=== PATIENT | male | born 1940 | race Caucasian/White ===

== ENCOUNTER 2017-01-18 07:33 | Inpatient (IN) | payer MEDICARE, BC ==
[~2017-01-18] VITALS: Ht 182.9 cm; Wt 102.0 kg
[2017-01-18] VITALS (14 sets, daily range): BP systolic 112–136; BP diastolic 56–74; PULSE 38–100; RESP 17–20; TEMP 97.1–98.2; O2SAT 96–100
[~2017-01-18 07:33] MED LIST: ASPI81TA82 PO; FURO1TAB93 PO; ISOS30TA3 PO; LISI-363 PO; METF-324 PO; METO50TA PO; NITR.4 SL; PERC5TAB12 PO; SIMV80TA PO; SINE25100 PO
--- NOTE | 2017-01-18 07:40 | PD ---
HPI Chief Complaint: syncope Time Seen by Provider: 07:40 Travel History International Travel<30 days: No Contact w/Intl Traveler<30days: No Traveled to known affect area: No History of Present Illness HPI 76-year-old male came to the emergency room brought by EMS for a syncopal episode while he was eating breakfast with his son-in-law. This was witnessed by the son-in-law who immediately called 911. When the first responders arrived they noticed him on the floor diaphoretic pale and it didn't seem like he had a pulse. They were about to start CPR but then pulse return before CPR was started. Patient slowly started to wake up. Initial blood pressure was 80 over palp and blood sugar was 189. His heart rate was 40 and sinus bradycardia. When he arrived in the emergency room his heart rate was 38 and blood pressure was 111 systolic. Patient was awake, alert and answering questions appropriately. He denies of any chest pain. His son-in-law came in within 5 minutes and confirmed the story again. Patient is on metoprolol among other medications and he took his medications at 4:30 in the morning when he woke up. He says that he saw his insulation board head saw operator 2 days ago and was told everything was okay. His insulation board head saw operator is Dr. De La Cruz. [facility] Past Medical History Narrative Medical List of his past medical, surgical, social and family history was reviewed from the nursing note. Arthritis: No Asthma: No Anxiety: No Depression: No Heart Rhythm Problems: No Cancer: No Cardiac Catheterization: Yes Cardiovascular Problems: Yes ([place]) High Cholesterol: Yes Chemotherapy: No Chest Pain: Yes Congestive Heart Failure: Yes COPD: No Cerebrovascular Accident: No Coronary Artery Disease: Yes Diabetes: Yes Diminished Hearing: Yes ([place]) GERD: No Genitourinary: No Hiatal Hernia: No Hypertension: Yes Kidney Stones: No Musculoskeletal: No Parkinson's Disease: Yes Psychiatric: No Reproductive: No Respiratory: No Migraines: No Myocardial Infarction: Yes Radiation Therapy: No Renal Failure: No Sickle Cell Disease: No Sleep Apnea: No Thyroid Disease: No Ulcer: No Past Surgical History Abdominal Surgery: No Arteriovenous Shunt: No Cardiac Surgery: No Coronary Artery Bypass Graft: Yes Ear Surgery: No Endocrine Surgery: No Eye Surgery: No Genitourinary Surgery: No Gynecologic Surgery: No Joint Replacement: No Oral Surgery: No Pacemaker: No Thoracic Surgery: No Tonsillectomy: Yes Other Surgery: Yes (CABG X 3) Social History Alcohol Use: Yes (4-6 BEERS A WEEK) Tobacco Use: No Substance Use: No Allergies-Medications (Allergen,Severity, Reaction): Coded Allergies: No Known Allergies (Unverified , 06/22/15) Comments No known drug allergies. Reported Meds & Prescriptions Reported Meds & Active Scripts Active Reported Nitroglycerin SL (Nitroglycerin) 0.4 Mg Subl 0.4 Mg SL DIRECTED PRN ONE TABLET UNDER THE TONGUE NEEDED FOR CHEST PAIN, MAY REPEAT EVERY FIVE MINUTES FOR A TOTAL OF 3 DOSES OR CALL 911 IF NO RELIEF Simvastatin 80 Mg Tab 80 Mg PO DAILY Metoprolol Tartrate 50 Mg Tab 50 Mg PO DAILY Lisinopril 40 Mg Tab 40 Mg PO DAILY Isosorbide Mononitrate ER (Isosorbide Mononitrate) 30 Mg Edu 30 Mg PO DAILY Furosemide 40 Mg Tab 40 Mg PO DAILY Carbidopa-Levodopa 25-100 Mg Tab 1 Tab PO Q8HR Bupropion HCl ER 12 HR (Bupropion HCl) 100 Mg Tab 150 Mg PO Q12HR Aspirin 81 Mg Chew 81 Mg CHEW DAILY Narrative Medication List of his home medications reviewed from the nursing note. Review of Systems Except as stated in HPI: all other systems reviewed are Neg Physical Exam Narrative GENERAL: Awake, alert, mild distress SKIN: Focused skin assessment warm/dry. Pale HEAD: Atraumatic. Normocephalic. EYES: Pupils equal and round. No scleral icterus. No injection or drainage. ENT: No nasal bleeding or discharge. Mucous membranes pink and moist. NECK: Trachea midline. No JVD. CARDIOVASCULAR: Regular rate and rhythm. Bradycardia. No murmur appreciated. RESPIRATORY: No accessory muscle use. Clear to auscultation. Breath sounds equal bilaterally. GASTROINTESTINAL: Abdomen soft, non-tender, nondistended. Hepatic and splenic margins not palpable. MUSCULOSKELETAL: No obvious deformities. No clubbing. No cyanosis. No edema. NEUROLOGICAL: Awake and alert. No obvious cranial nerve deficits. Motor grossly within normal limits. Normal speech. PSYCHIATRIC: Appropriate mood and affect; insight and judgment normal. Data Data Last Documented VS Vital Signs Date Time Temp Pulse Resp B/P Pulse Ox O2 Delivery O2 Flow Rate FiO2 01/18/17 09:55 58 20 125/56 01/18/17 08:00 97 01/18/17 08:00 Nasal Cannula 2 01/18/17 07:37 98.2 Orders Electrocardiogram (01/18/17 07:49) Basic Metabolic Panel (Bmp) (01/18/17 07:49) Ckmb (Isoenzyme) Profile (01/18/17 07:49) Complete Blood Count With Diff (01/18/17 07:49) Magnesium (Mg) (01/18/17 07:49) Prothrombin Time / Inr (Pt) (01/18/17 07:49) Act Partial Throm Time (Ptt) (01/18/17 07:49) Troponin I (01/18/17 07:49) Chest, Single Ap (01/18/17 07:49) Ecg Monitoring (01/18/17 07:49) Bilateral Bp Monitoring (01/18/17 07:49) Iv Access Insert/Monitor (01/18/17 07:49) Oximetry (01/18/17 07:49) Oxygen Administration (01/18/17 07:49) Sodium Chloride 0.9% Flush (Ns Flush) (01/18/17 08:00) Sodium Chlorid 0.9% 500 Ml Inj (Ns 500 M (01/18/17 08:00) Atropine Inj (Atropine Inj) (01/18/17 08:00) Consult Cardiology (01/18/17 ) (Hub Use Only)Inp Phy Cons/Ref (01/18/17 ) Admit Order (Ed Use Only) (01/18/17 10:40) Labs Laboratory Tests Test 01/18/17 08:30 White Blood Count 6.5 TH/MM3 Red Blood Count 3.63 MIL/MM3 Hemoglobin 10.6 GM/DL Hematocrit 31.9 % Mean Corpuscular Volume 88.0 FL Mean Corpuscular Hemoglobin 29.2 PG Mean Corpuscular Hemoglobin 33.2 % Concent Red Cell Distribution Width 13.9 % Platelet Count 175 TH/MM3 Mean Platelet Volume 8.0 FL Neutrophils (%) (Auto) 73.4 % Lymphocytes (%) (Auto) 12.7 % Monocytes (%) (Auto) 9.6 % Eosinophils (%) (Auto) 3.7 % Basophils (%) (Auto) 0.6 % Neutrophils # (Auto) 4.8 TH/MM3 Lymphocytes # (Auto) 0.8 TH/MM3 Monocytes # (Auto) 0.6 TH/MM3 Eosinophils # (Auto) 0.2 TH/MM3 Basophils # (Auto) 0.0 TH/MM3 CBC Comment DIFF FINAL Differential Comment Prothrombin Time 11.5 SEC Prothromb Time International 1.0 RATIO Ratio Activated Partial 26.4 SEC Thromboplast Time Sodium Level 140 MEQ/L Potassium Level 3.7 MEQ/L Chloride Level 103 MEQ/L Carbon Dioxide Level 29.5 MEQ/L Anion Gap 8 MEQ/L Blood Urea Nitrogen 31 MG/DL Creatinine 1.40 MG/DL Estimat Glomerular Filtration 49 ML/MIN Rate Random Glucose 144 MG/DL Calcium Level 8.6 MG/DL Magnesium Level 2.3 MG/DL Total Creatine Kinase 63 U/L Troponin I LESS THAN 0.02 NG/ML MDM Medical Decision Making Medical Screen Exam Complete: Yes Emergency Medical Condition: Yes Medical Record Reviewed: Yes Interpretation(s) Twelve-lead EKG was reviewed by me. Normal sinus rhythm, normal axis, sinus bradycardia, nonspecific ST-T wave changes. Heart rate of 38 bpm. Differential Diagnosis Symptomatic bradycardia, non-STEMI, medication-induced bradycardia Narrative Course 9:05 AM patient was given 0.5 mg of atropine and I was told by the nurse that the heart rate went up at the most 2 51 bpm and fluctuating between mid 40s to early 50s. Blood pressure is holding stable in 1 teens systolic. Patient continues to feel okay. Awaiting for the blood test results. Chest x-rays within normal limit. In my opinion this is probably medication induced bradycardia. However since it was so profound and that led to a syncopal episode at his age I wish to admit him at least for observation. Once he is admitted the hospitalist can consult the insulation board head saw operator as well. There is no indication for pacing him at this point since he is hemodynamically stable and there is no AV conduction block. 9:29 AM blood test results of back and patient seems a little dehydrated. He had received 500 cc of IV fluid by EMS and I've given him another 500 cc bolus. Rest of his blood test results are within normal limit. Awaiting for the admitting team to call back. 9:44 AM case was discussed with patient's insulation board head saw operator Dr. De La Cruz. He agreed with the management so far. He wants the patient to be admitted and [facility] and they will consult him. In his opinion he thinks this is probably something more profound than just related to medications. Patient did have history of ablation for A. fib in the past. Critical Care Narrative Aggregate critical care time was 30 minutes. Time to perform other separately billable procedures was not included in the critical care time. My time did not include minutes spent treating any other patients simultaneously or on activities that did not directly contribute to the patient's treatment. The services I provided to this patient were to treat and/or prevent clinically significant deterioration that could result in: Symptomatic bradycardia, syncope I provided critical care services requiring my management, as noted below: Chart data review, documentation time, medication orders and management, vital sign assessments/reviewing monitor data, ordering and reviewing lab tests, ordering and interpreting/reviewing x-rays and diagnostic studies, care of the patient and discussion of the patient with the admitting physicians. Procedures EKG Prior to Arrival: Yes Physician Communication Physician Communication Dr. De La Cruz Diagnosis Primary Impression: Syncope Qualified Code: R55 - Syncope, unspecified syncope type Additional Impressions: Symptomatic bradycardia Dehydration Admitting Information Admitting Physician Requests: Admit Scripts Levofloxacin (Levaquin)500 Mg [id number] Mg PO DAILY #4 Prov:Mike Lopez MD R2 01/19/17 Ugo Arthur MD Jan 18, 2017 07:40
[2017-01-18] MEDS ORDERED: ASPI81CH CHEW (07:53)
[2017-01-18] MEDS ORDERED: BUPR1TAB70 PO (07:53)
[2017-01-18] MEDS ORDERED: CARB25TA9 PO (07:55)
[2017-01-18] MEDS ORDERED: ISOS30TA3 PO (07:55)
[2017-01-18] MEDS ORDERED: METO50TA PO (07:55)
[2017-01-18] MEDS ORDERED: SIMV80TA PO (07:55)
[2017-01-18] MEDS ORDERED: LISI40TA PO (07:55)
[2017-01-18] MEDS ORDERED: FURO40TA PO (07:55)
[2017-01-18] MEDS ORDERED: NITR1SUB3 SL (07:55)
[2017-01-18] MEDS ORDERED: SODIUM CHLORID 0.9% 500 ML INJ 500 ML IV ONE (08:00)
[2017-01-18] MEDS ORDERED: SODIUM CHLORIDE 0.9% FLUSH 10 ML FLUSH IVF PRN (08:00)
[2017-01-18] MEDS ORDERED: ATROPINE SULFATE 1 MG/ML VIAL IV PUSH ONE (08:00)
--- NOTE | 2017-01-18 08:50 | RADRPT ---
EXAM DATE/TIME: 01/18/2017 08:18 [place] COMPARISON: CHEST SINGLE AP, June 22, 2015, 7:57. INDICATIONS : Patient is having chest pain and passed out this morning. MEDICAL HISTORY : Hypertension. Diabetes mellitus type 2. Coronary artery disease. Parkinsons SURGICAL HISTORY : CABG. ENCOUNTER: Initial ACUITY: 1 day PAIN SCORE: 3/10 LOCATION: Bilateral chest FINDINGS: Median sternotomy wires and postoperative changes of prior cardiac surgery. Redemonstration of right lower lung zone pleural-parenchymal disease unchanged from prior exam. No new focal or pleural or par enchymal opacities. Cardiomediastinal contours are stable. Remainder of exam is unchanged. CONCLUSION: 1. 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 2. No acute abnormality or significant interval change. Ronen Zamora MD on January 18, 2017 at 8:47 Board Certified Radiologist. This report was verified electronically.
[2017-01-18 08:57] LABS: AUTOMATED NEUTROPHIL # 4.8 TH/MM3 (1.8-7.7); BASOPHIL % 0.6 % (0.0-2.0); EOSINOPHIL # 0.2 TH/MM3 (0-0.4); EOSINOPHIL % 3.7 % (0.0-4.0); HEMATOCRIT 31.9 % (39.0-51.0); HEMO FLAGS DIFF FINAL; LYMPH % 12.7 % (9.0-44.0); LYMPHOCYTE # 0.8 TH/MM3 (1.0-4.8); MEAN CORPUSCULAR HEMOGLOBIN 29.2 PG (27.0-34.0); MEAN CORPUSCULAR HGB CONC 33.2 % (32.0-36.0); MONO % 9.6 % (0.0-8.0); NEUT % 73.4 % (16.0-70.0); PLATELET COUNT 175 TH/MM3 (150-450); RED BLOOD COUNT 3.63 MIL/MM3 (4.50-5.90); RED CELL DISTRIBUTION WIDTH 13.9 % (11.6-17.2); WHITE BLOOD COUNT 6.5 TH/MM3 (4.0-11.0)
[2017-01-18 09:04] LABS: APTT (PATIENT) 26.4 SEC (24.3-30.1); PROTHROMBIN TIME - PATIENT 11.5 SEC (9.8-11.6)
[2017-01-18 09:17] LABS: ANION GAP 8 MEQ/L (5-15); BICARBONATE 29.5 MEQ/L (21.0-32.0); BLOOD UREA NITROGEN 31 MG/DL (7-18); CHLORIDE 103 MEQ/L (98-107); GLOMERULAR FILTRATION RATE 49 ML/MIN (>89); MAGNESIUM 2.3 MG/DL (1.5-2.5); POTASSIUM 3.7 MEQ/L (3.5-5.1); SODIUM (NA) 140 MEQ/L (136-145)
[2017-01-18 09:27] LABS: CREATINE KINASE 63 U/L (39-308)
--- NOTE | 2017-01-18 10:46 | HHI.HP ---
[facility] Service Family Medicine Primary Care Physician [facility] Admission Diagnosis syncope, symptomatic bradycardia Diagnoses: International Travel<30 Days: No Contact w/Intl Traveler<30days: No Known Affected Area: No History of Present Illness Klaus Felton is a very pleasant 76 year old man with h/o CAD s/p CABG in 1983 and stenting of LAD in 11/2012, DM, HTN, HLD, and Parkinson's disease who is brought to the ED via EMS following a syncopal event earlier today. Klaus is accompanied in the ED by his son Twan. They state Klaus woke up this morning in his normal state of health. They went for breakfast at [facility] and patient was feeling fine then. His son went to pay the bill when the patient fell to the ground. His son did not witness the fall. They state the episode was around 06: 30 this morning. They deny any seizure-like activity. Patient was confused following the event for a brief period however was AOx3 shortly after. The next thing he remembers was being worked on by the paramedics. Currently in the ED he states he feels perfectly fine. He denies any focal neuro symptoms. Denies confusion, headaches, dizziness, lightheadedness, difficulty with speech, visual changes, weakness in any extremity. Denies trauma to head with the fall. Denies history of seizures. He has been compliant with all of his medications recently. He follows with Dr. De La Cruz and states he was seen at his clinic 2- 3 days ago. 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 Past Surgical History CABG in 1983 and stenting of LAD in 11/2012 (Mike Lopez MD R1) Allergies: Coded Allergies: No Known Allergies (Unverified , 06/22/15) Family History Father: CAD Mother: Alzheimers Strong FH of [place] Social History Tobacco: quit smoking 15 years ago Etoh: social occasions Illicit drug use: denies 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 Normal speech. corporate quality manager II-XII intact. Motor intact. Strength 5/5 throughout. Sensation intact to light touch throughout. SKIN: Warm and dry. No rashes or erythema. HEAD: Normocephalic. Atraumatic. EYES: PERRL. EOMI. No scleral icterus. No injection or drainage. ENT: No nasal drainage. Moist mucous membranes. No oral ulcers or lesions. NECK: Supple, trachea midline. No JVD or lymphadenopathy. No carotid bruits. CARDIOVASCULAR: Bradycardic rate, regular rhythm. No n/r/g. Peripheral pulses 2+ . Capillary refill < 2 seconds. RESPIRATORY: Breath sounds clear to auscultation and equal bilaterally, without wheezes, rales, or rhonchi. No accessory muscle use. GASTROINTESTINAL: Abdomen soft, nontender, nondistended, normal BS. No organomegaly or masses. No rebound tenderness. No guarding. MUSCULOSKELETAL: No lower extremity edema. Normal range of motion. BACK: Nontender without obvious deformity. Laboratory Laboratory Tests Test 01/18/17 08:30 White Blood Count 6.5 Red Blood Count 3.63 Hemoglobin 10.6 Hematocrit 31.9 Mean Corpuscular Volume 88.0 Mean Corpuscular Hemoglobin 29.2 Mean Corpuscular Hemoglobin 33.2 Concent Red Cell Distribution Width 13.9 Platelet Count 175 Mean Platelet Volume 8.0 Neutrophils (%) (Auto) 73.4 Lymphocytes (%) (Auto) 12.7 Monocytes (%) (Auto) 9.6 Eosinophils (%) (Auto) 3.7 Basophils (%) (Auto) 0.6 Neutrophils # (Auto) 4.8 Lymphocytes # (Auto) 0.8 Monocytes # (Auto) 0.6 Eosinophils # (Auto) 0.2 Basophils # (Auto) 0.0 CBC Comment DIFF FINAL Differential Comment Prothrombin Time 11.5 Prothromb Time International 1.0 Ratio Activated Partial 26.4 Thromboplast Time Sodium Level 140 Potassium Level 3.7 Chloride Level 103 Carbon Dioxide Level 29.5 Anion Gap 8 Blood Urea Nitrogen 31 Creatinine 1.40 Estimat Glomerular Filtration 49 Rate Random Glucose 144 Calcium Level 8.6 Magnesium Level 2.3 Total Creatine Kinase 63 Troponin I LESS THAN 0.02 (Mike Lopez MD R1) Result Diagram: 01/18/1782901/18/17829 Assessment and Plan Assessment and Plan 76 year old man presenting following a syncopal episode earlier today and being admitted for symptomatic bradycardia Code Status Full code Discussed Condition With Dr. Lares (Mike Lopez MD R1) Attending Attestation THIS CASE WAS DISCUSSED WITH THE RESIDENT PHYSICIANS. I HAVE REVIEWED THE RECORD AND AGREE WITH THE ABOVE NOTE AND PLAN OF CARE WAS DISCUSSED. I HAVE AUTHORIZED THE ORDER FOR ADMISSION TO AN IN-PATIENT STATUS. (William Frederick MD) Problem List: (1) Symptomatic bradycardia Status: Acute Plan: - Patient's syncopal episode likely due to severe bradycardia - HR 50-60s bpm s/p atropine 0.5 mg IV in the ED - Initial EKG showing sinus bradycardia with HR of 38 bpm, intraventricular conduction delay, low voltage, no acute ST changes - Troponin < 0.02 - Hold home metoprolol and antihypertensives - Consult cardiology - Continuous telemetry - Trend troponins and EKG x2 q6h - Obtain carotid US, echo, TSH (2) Syncope Status: Acute Plan: - Plan as above - Neuro exam nonfocal and reassuring, not suspecting CVA - History not c/w seizure activity - Accuchecks ACHS - Continue neuro checks q4h - OOB with assistance only (3) AGUSTIN (acute kidney injury) Status: Acute Plan: - Cr on admission 1.40; baseline ~1.00 - Consider pre-renal etiology due to renal hypoperfusion, dehydration - MIVF with NS at 140 cc/hr - Continue to monitor renal function, I/Os - Avoid nephrotoxic agents (4) CAD (coronary artery disease) Status: Chronic Plan: - Trend troponins and EKG x2 q6h - Continue baby aspirin - Cardiology consulted (5) DM (diabetes mellitus) Status: Chronic Plan: - Accuchecks ACHS - Patient not on any home antihyperglycemic agents - Add ISS if needed (6) Hypertension Status: Chronic Plan: - BPs 110s-120s/50s - Hold home antihypertensives - Will restart following cardiology evaluation - Hold beta-cleveland due to bradycardia (7) Hyperlipidemia Status: Chronic Plan: - Continue pravastatin 80 mg po daily (8) Nutrition, metabolism, and development symptoms Status: Acute Plan: Fluids: NS at 140 cc/hr Electrolytes: WNL, continue to monitor Nutrition: NPO until evaluated by cardiology DVT ppx: b/l SCDs (Mike Lopez MD R1) Physician Certification 2 Midnight Certification Type: Admission for Inpatient Services Order for Inpatient Services The services are ordered in accordance with Medicare regulations or non- Medicare payer requirements, as applicable. In the case of services not specified as inpatient-only, they are appropriately provided as inpatient services in accordance with the 2-midnight benchmark. Estimated LOS (days): 2 days is the estimated time the patient will need to remain in the hospital, assuming treatment plan goals are met and no additional complications. Post-Hospital Plan: Home (Mike Lopez MD R1) Problem Qualifiers (1) Syncope: Qualified Code: R55 - Syncope, unspecified syncope type Mike Lopez MD R1 Jan 18, 2017 10:46 William Frederick MD Jan 18, 2017 17:01
[2017-01-18] MEDS ORDERED: SODIUM CHLORIDE 0.9% FLUSH 10 ML FLUSH IV FLUSH PRN (11:00)
[2017-01-18] MEDS: SODIUM CHLORIDE 0.9% FLUSH 10 ML FLUSH IV FLUSH SCH ×2 (11:01→20:18)
[2017-01-18] MEDS ORDERED: SODIUM CHLOR 0.9% 1000 ML INJ 1,000 ML IV SCH (11:15)
[2017-01-18] MEDS ORDERED: MUPIROCIN 2% OINT 1 APPLIC/GM SYR EACH NARE SCH (12:00)
[2017-01-18] MEDS ORDERED: CHLORHEXIDINE GLUCONATE 2 % 1 PACK (2 CLOTHS) TOPICAL SCH (12:00)
[2017-01-18] MEDS ORDERED: POVIDONE IODINE 5% (ANTISEPSIS KIT) 4 APPLICATIONS TOPICAL SCH (12:00)
--- NOTE | 2017-01-18 12:20 | MB ---
cc: JON HASSAN M.D. DATE OF CONSULTATION: 01/18/2017 REASON FOR CONSULTATION Syncope, bradycardia. HISTORY OF PRESENT ILLNESS The patient is a 76-year-old white male, followed in our office by Dr. 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 The patient had just finished eating at [employer] this morning at about 6:30 a.m. when while sitting he suddenly felt light-headed. About 10 seconds later he lost consciousness. The patient's consciousness apparently would wax and wane over the next few minutes. When he fully regained consciousness there was no disorientation. Apparently no seizure activity was witnessed. He reports one other episode of syncope about 4 months ago, while getting a haircut, lasting a few seconds. At that time he declined going to the hospital. The syncopal episode during his haircut was also preceded by 10 seconds of lightheadedness. He denies any recent angina, shortness of breath, palpitations, pedal edema, paroxysmal nocturnal dyspnea, orthopnea, fevers. PAST MEDICAL HISTORY 1. Paroxysmal atrial flutter, status post ablation 2006. 2. Coronary artery disease, status post bypass surgery 1983. He apparently underwent stenting x 2 in 2011. His heart catheterization in November 2012 showed total occlusions of the LAD and right coronary arteries, 50% left main stenosis, mild left circumflex disease, 70% restenosis of the vein graft to the LAD which was treated with a 4.0 mm Promus stent. 3. Mild chronic renal insufficiency. 4. Diabetes. 5. Hyperlipidemia. 6. Hypertension. 7. Parkinson's disease. MEDICATIONS His cardiac medications at home: 1. Simvastatin 80 mg q.h.s. 2. Metoprolol 50 mg q. daily. 3. Lisinopril 40 mg q. daily. 4. Isosorbide mononitrate 30 mg q. daily. 5. Furosemide 40 mg q. daily. 6. Aspirin 81 mg q. daily. ALLERGIES No known drug allergies. FAMILY HISTORY Noncontributory. SOCIAL HISTORY The patient quit smoking 15 years ago. He denies alcohol abuse. REVIEW OF SYSTEMS As in the history of present illness, otherwise negative or noncontributory. He also denies headache, visual changes, unilateral weakness or numbness, abdominal pain, melena, dyspepsia, bright red blood per rectum. PHYSICAL EXAMINATION VITAL SIGNS: On physical examination his blood pressure is 125/56 with a pulse of 58, respirations 20. GENERAL: In general he is a well-developed, well-nourished white male in no acute distress. HEENT/NECK: Jugular venous pressure is normal. Carotid pulses are 2+ bilaterally and without bruits. CHEST: Examination of the chest reveals clear lung ramachandran. CARDIAC: On cardiac examination he has a regular rhythm and rate without S3, S4, or murmur. ABDOMEN: On abdominal examination he has a soft, obese, nontender abdomen. Bowel sounds are present. There is no definite hepatosplenomegaly. EXTREMITIES: Examination of the extremities reveals no clubbing, cyanosis or edema. LABORATORY Laboratory data includes potassium 3.7, BUN 31, creatinine 1.40, CK 63, troponin less than 0.02, WBC 6.5, hemoglobin 10.6, platelets 175, INR 1.0. IMAGING Chest x-ray shows no acute disease. EKG EKG is pending. IMPRESSION Syncope, probable symptomatic bradycardia in this 76-year-old white male with a history of coronary artery disease, paroxysmal atrial flutter status post ablation 2006, diabetes, hypertension, Parkinson's disease, mild chronic renal insufficiency. The patient's heart rate reportedly in the emergency department here was in the 30s on presentation. I suspect his loss of consciousness was due to severe bradycardia. He also notes one very similar episode about three or four months ago preceded by lightheadedness. The patient is on beta cleveland therapy. I did give him the option of stopping his beta cleveland and observing him. However, I stressed with his history of cardiac disease the importance of beta cleveland therapy and have recommended permanent pacemaker implantation. He agrees to this approach. The nature of a permanent pacemaker and potential risks including but not limited to cardiac perforation, pneumothorax, bleeding and infection have been outlined to the patient. He agrees to proceed. RECOMMENDATIONS 1. Continue his usual home cardiac medications except hold his beta cleveland until his pacemaker has been implanted. 2. If possible will do his pacemaker case today. MD MOIRA Deras/MADELAINE /11:48 AM /12:04 PM MTDD
[2017-01-18] MEDS: ASPIRIN 81 MG CHEW TAB CHEW SCH (12:36)
[2017-01-18] MEDS: SODIUM CHLOR 0.9% 1000 ML INJ 1,000 ML IV SCH ×4 (12:37→20:18)
[2017-01-18] MEDS: PRAVASTATIN SOD 80 MG TAB PO SCH (12:37)
[2017-01-18] MEDS: buPROPion HCL 150 MG SUSTAINED RELEASE TAB PO SCH ×2 (13:28→20:25)
[2017-01-18] MEDS: CARBIDOPA/LEVODOPA 25 MG/100 MG TAB PO SCH ×2 (13:28→20:17)
--- NOTE | 2017-01-18 15:31 | RADRPT ---
EXAM DATE/TIME: 01/18/2017 12:19 [facility] COMPARISON: US CAROTID ARTERIES, April 14, 2014, 18:15. INDICATIONS : Syncope. MEDICAL HISTORY : Myocardial infarction. Congestive heart failure. Hypercholesterolemia. Parkinsons. CAD. Hypertension. Diabetes. Liver diease. PTSD. SURGICAL HISTORY : Tonsillectomy. CABG. Cardiac catheterization. ENCOUNTER: Initial ACUITY: 1 day PAIN SCORE: 0/10 LOCATION: Bilateral neck PEAK SYSTOLIC VELOCITIES (cm/sec): ICA/CCA RATIO: Right: 1.3 Left: 1.3 ICA: Right: 121 Left: 161 CCA: Right: 92 Left: 120 ECA: Right: 146 Left: 172 VERTEBRAL: Right: 61 antegrade Left: 74 antegrade Elevated flow velocities and ICA/CCA ratios have been found to correlate with increased degrees of vessel stenosis, calculated as percentage of diameter relative to a normal segment of distal ICA/CCA FINDINGS: RIGHT CAROTID: Calcified plaque involving the carotid bulb and ICA origin. A calcified nature generates shadowing wh ich obscures the grayscale analysis. The waveforms are within normal limits. LEFT CAROTID: Calcified plaque involving the carotid bulb and ICA origin. A calcified nature generates shadowing wh ich obscures the grayscale analysis. The waveforms are within normal limits. VERTEBRAL ARTERIES: Antegrade flow is seen in both vertebral arteries. MISCELLANEOUS: None. CONCLUSION: 1. 50-69% stenoses involving the proximal ICAs bilaterally. This can be further assessed with CTA of the carotid arteries if clinically warranted. 2. Antegrade flow involving both vertebral arteries. Rancho Navarro Jr., MD on January 18, 2017 at 14:55 Board Certified Radiologist. This report was verified electronically.
--- NOTE | 2017-01-18 17:00 | HHI.HP ---
[facility] Service Family Medicine Primary Care Physician [facility] Admission Diagnosis syncope, symptomatic bradycardia Diagnoses: (1) Symptomatic bradycardia (2) Syncope (3) AGUSTIN (acute kidney injury) (4) CAD (coronary artery disease) (5) DM (diabetes mellitus) (6) Hypertension (7) Hyperlipidemia (8) Nutrition, metabolism, and development symptoms International Travel<30 Days: No Contact w/Intl Traveler<30days: No Known Affected Area: No History of Present Illness 76-year-old male presenting to the emergency department after a syncopal episode this morning. He was at breakfast with his son when he began feeling lightheaded/dizzy for approximately 10-15 seconds prior to "passing out". He fell to the ground and was unresponsive for several minutes before regaining consciousness. There was no seizure type activity such as tonic/clonic shaking , tongue biting, or loss of bowel/bladder activity. There was no postictal type state either. When he was brought to the emergency department he was found to have a heart rate in the 30s and was given atropine 1 with resumption of his heart rate into the 60s. He states that he had a syncopal episode similar to this approximately 4 months ago while getting a haircut. Symptoms were similar with some dizziness/ lightheadedness for several seconds prior to passing out. He does not recall how long he was out/unconsciousness at his previous episode. He did not see a physician after this previous syncopal episode. He does have a history of CAD status post CABG in 1983 and subsequent stenting of his LAD in 11/2012. He also has a past medical history for diabetes mellitus, hypertension, hyperlipidemia, and Parkinson's disease. Review of Systems Constitutional: COMPLAINS OF: Fatigue, Dizziness, DENIES: Weight loss, Chills Eyes: DENIES: Blurred vision, Double Vision Ears, nose, mouth, throat: DENIES: Tinnitus Respiratory: DENIES: Cough, Wheezing, Hemoptysis, Sputum production, Shortness of breath Cardiovascular: COMPLAINS OF: Syncope, Dyspnea on Exertion, DENIES: Chest pain , Palpitations, Lower Extremity Edema, Claudication Gastrointestinal: DENIES: Abdominal pain, Black stools, Bloody stools, Constipation, Diarrhea, Nausea, Vomiting Past Family Social History Past Medical History CAD s/p CABG in 1983 and stenting of LAD in 11/2012 Paroxysmal a-flutter s/p ablation in 2006 DM HTN HLD Parkinson's disease 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 Past Surgical History CABG in 1983 and stenting of LAD in 11/2012 Allergies: Coded Allergies: No Known Allergies (Unverified , 06/22/15) Family History Father: CAD Mother: Alzheimers Strong FH of [place] Social History Tobacco: quit smoking 15 years ago Etoh: social occasions Illicit drug use: denies Retired police patrol lieutenant, previously worked in [employer] Physical Exam Vital Signs Vital Signs Date Time Temp Pulse Resp B/P Pulse Ox O2 Delivery O2 Flow Rate FiO2 01/18/17 15:00 97.1 100 17 134/74 98 01/18/17 11:30 96 21 01/18/17 11:28 65 01/18/17 09:55 58 20 125/56 01/18/17 08:40 47 20 116/58 01/18/17 08:00 43 20 115/57 01/18/17 08:00 97 01/18/17 08:00 Nasal Cannula 2 01/18/17 07:37 98.2 38 20 112/56 99 Physical Exam GENERAL: NAD, lying comfortably in bed NEURO: AOx3. Normal speech. asbestos worker II-XII intact. Motor intact. SKIN: Warm and dry. No rashes or erythema. NECK: Supple, trachea midline. CARDIOVASCULAR: Regular rate and rhythm without murmur, heart rate in the 60s RESPIRATORY: Breath sounds clear to auscultation and equal bilaterally, without wheezes, rales, or rhonchi. No accessory muscle use. GASTROINTESTINAL: Abdomen soft, nontender, nondistended MUSCULOSKELETAL: No lower extremity edema. Normal range of motion. Laboratory Laboratory Tests Test 01/18/17 01/18/17 08:30 14:56 White Blood Count 6.5 Red Blood Count 3.63 Hemoglobin 10.6 Hematocrit 31.9 Mean Corpuscular Volume 88.0 Mean Corpuscular Hemoglobin 29.2 Mean Corpuscular Hemoglobin 33.2 Concent Red Cell Distribution Width 13.9 Platelet Count 175 Mean Platelet Volume 8.0 Neutrophils (%) (Auto) 73.4 Lymphocytes (%) (Auto) 12.7 Monocytes (%) (Auto) 9.6 Eosinophils (%) (Auto) 3.7 Basophils (%) (Auto) 0.6 Neutrophils # (Auto) 4.8 Lymphocytes # (Auto) 0.8 Monocytes # (Auto) 0.6 Eosinophils # (Auto) 0.2 Basophils # (Auto) 0.0 CBC Comment DIFF FINAL Differential Comment Prothrombin Time 11.5 Prothromb Time International 1.0 Ratio Activated Partial 26.4 Thromboplast Time Sodium Level 140 Potassium Level 3.7 Chloride Level 103 Carbon Dioxide Level 29.5 Anion Gap 8 Blood Urea Nitrogen 31 Creatinine 1.40 Estimat Glomerular Filtration 49 Rate Random Glucose 144 Calcium Level 8.6 Magnesium Level 2.3 Total Creatine Kinase 63 Troponin I LESS THAN 0.02 LESS THAN 0.02 Result Diagram: 01/18/17 0830 01/18/1730 Imaging Last 48 hours Impressions Chest X-Ray 01/18/17 0749 Signed Impressions: Service Date/Time: Wednesday, January 18, 2017 08:18 - CONCLUSION: 1. 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 2. No acute abnormality or significant interval change. Roenn Zamora MD Carotid Artery Ultrasound 01/18/17 0000 Signed Impressions: Service Date/Time: Wednesday, January 18, 2017 12:19 - CONCLUSION: 1. 50-69%% stenoses involving the proximal ICAs bilaterally. This can be further assessed with CTA of the carotid arteries if clinically warranted. 2. Antegrade flow involving both vertebral arteries. Rancho Navarro Jr., MD Assessment and Plan Assessment and Plan 76 year old man presenting following a syncopal episode earlier today and being admitted for symptomatic bradycardia Problem List: (1) Symptomatic bradycardia Status: Acute Plan: Patient's syncopal episode likely due to severe bradycardia - HR 50-60s bpm s/p atropine 0.5 mg IV in the ED - Initial EKG showing sinus bradycardia with HR of 38 bpm, intraventricular conduction delay, low voltage, no acute ST changes - Troponin < 0.02 - Hold home metoprolol and antihypertensives - Consult cardiology - Plan to place a cardiac pacemaker today - Continuous telemetry - Trend troponins and EKG x2 q6h - Obtain carotid US, echo, TSH (2) Syncope Status: Acute Plan: - Plan as above - Neuro exam nonfocal and reassuring, not suspecting CVA - History not c/w seizure activity - Accuchecks ACHS - Continue neuro checks q4h - OOB with assistance only (3) AGUSTIN (acute kidney injury) Status: Acute Plan: - Cr on admission 1.40; baseline ~1.00 - Consider pre-renal etiology due to renal hypoperfusion, dehydration - MIVF with NS at 140 cc/hr - Continue to monitor renal function, I/Os - Avoid nephrotoxic agents (4) CAD (coronary artery disease) Status: Chronic Plan: - Trend troponins and EKG x2 q6h - Continue baby aspirin - Cardiology consulted (5) DM (diabetes mellitus) Status: Chronic Plan: - Accuchecks ACHS - Patient not on any home antihyperglycemic agents - Add ISS if needed (6) Hypertension Status: Chronic Plan: - BPs 110s-120s/50s - Hold home antihypertensives - Will restart following cardiology evaluation - Hold beta-cleveland due to bradycardia (7) Hyperlipidemia Status: Chronic Plan: - Continue pravastatin 80 mg po daily (8) Nutrition, metabolism, and development symptoms Status: Acute Plan: Fluids: NS at 140 cc/hr Electrolytes: WNL, continue to monitor Nutrition: NPO until evaluated by cardiology DVT ppx: b/l SCDs Physician Certification 2 Midnight Certification Type: Admission for Inpatient Services Order for Inpatient Services The services are ordered in accordance with Medicare regulations or non- Medicare payer requirements, as applicable. In the case of services not specified as inpatient-only, they are appropriately provided as inpatient services in accordance with the 2-midnight benchmark. Estimated LOS (days): 2 2 days is the estimated time the patient will need to remain in the hospital, assuming treatment plan goals are met and no additional complications. Post-Hospital Plan: Not yet determined Problem Qualifiers (1) Syncope: Qualified Code: R55 - Syncope, unspecified syncope type William Frederick MD Jan 18, 2017 17:00
[2017-01-18] MEDS ORDERED: PROPOFOL 200 MG/20 ML AMP IV ONE (17:12)
[2017-01-18] MEDS ORDERED: IOHEXOL 350 MG/ML 50 ML BTL (for Cath Lab) OTHER ONE (17:12)
[2017-01-18] MEDS ORDERED: LIDOCAINE HCL 2% 50 ML VIAL ONE (17:25)
[2017-01-18] MEDS ORDERED: ceFAZolin INJ 1,000 MG VIAL ONE (17:25)
[2017-01-18] MEDS ORDERED: VANCOMYCIN HCL 1000 MG VIAL ONE (17:25)
--- NOTE | 2017-01-18 18:32 | CATHPROC ---
[employer] HIS Report Study Information Study Number Admission Scheduled Start Study Start [id number] Jan 18 2017 10:41AM 01/18/2017 Jan 18 2017 5:08PM [facility] Cardiac Pacer/ICD Admit Source Facility Department Emergency department [facility] - Maintenance Data Analyst Physician and Clinical Staff Initial Gabe Horton Food Service Director Antonia Carranza,RT(R) TECH2 Other Anesthesia, DESULPHURING OPERATOR Other Brisa Freeman,ELIEL Recorder Ermelinda Willis BSRN Scrub Alfredo Mosquera,RT(R) Procedures Performed Procedure Location (Site) Vessel Name Lead Insertion Venogram Subclav. Vein (Lft Subclavian Vein Equipment Time Personal Injury Legal Assistant Description Size Mfg Part Number Used/Scraped CATHETER, BIFURCATED 17:48 ANGIO-DYNAMICS FR 5 [id number] Used INFUSION BENEPHIT 17:57 BIOTRONIK LEAD, SOLIA 60 PRO MRI * [id number] Used 18:06 BIOTRONIK LEAD, SOLIA 60 53 PRO MRI * [id number] Used 18:11 BIOTRONIK PACEMAKER, ELUNA 8 DR-T DDDR [id number] Used TP-1103 17:08 MEDLINE INDUSTRIES SUTURE, STRIP PLUS 1/2" * Used *[id number] 17:08 MEDLINE PACER ADHESIVE, MASTISOL 2/3CC 2/3CC 0523-48 Used 17:08 MEDLINE PACER BARRERA, LIMB * 2530 *[id number] Used [id number] 17:08 MEDLINE PACER PACK, PACER CUSTOM * Used *[id number] 17:08 MEDLINE PACER PEN, SKIN DUAL W/ RULER * Used *[id number] 17:48 [employer] MEDICAL PACER SAFE SHEATH, FR6, 13CM FR 6 [id number] Used 17:48 [employer] MEDICAL PACER SAFE SHEATH, FR6, 13CM FR 6 CLS-1006 Used 17:47 Needle Sponge Count 2 22 Used 18:14 Needle Sponge Count 2 22 Used 18:23 Needle Sponge Count 2 22 Used 18:23 Needle Sponge Count 25 1 Used 18:14 Needle Sponge Count 25 1 Used 17:47 Needle Sponge Count 25 1 Used 17:47 Needle Sponge Count 4 4 Used 18:14 Needle Sponge Count 4 4 Used 18:23 Needle Sponge Count 4 4 Used 17:58 NYCOMED OMNIPAQUE, 350 MG, 50ML 50ML [id number] Used [id number] *[id number] SUTURE, 3-0 VICRYL [SH] ([id number]) SUTURE, 3-0 VICRYL [SH] ([id number]) SUTURE, 4-0 MONOCRYL [PS2] (Y496G) [id number] 17:08 [employer] BLANKET,WARM AIR CCL * Used *[id number] [facility] PAD, ELECTROSURGICAL 17:08 * [id number] *[id number] Used SURGICAL GROUNDING ORANGE [id number] 17:08 [employer] SUMAN. ELECTRODE, PRO-PADZ BIPHASIC * Used *[id number] Equipment Model, Serial, Lot Number and Expiration Data Description Model Number Serial Number Lot Number Expiration Date LEAD, SOLIA 60 PRO MRI [id number] 12-16-2018 LEAD, SOLIA 60 53 PRO MRI [id number] 10-16-2018 PACEMAKER, ELUNA 8 SANTOSH [id number] 01-16-2018 History: Allergies Allergy Reaction NKDA History: Risk Factors Family History of Hypertension Dyslipidemia Premature CAD Yes Yes Yes Prior PCI Prior CABG Yes Yes Diabetes Yes History: Symptoms/Diagnosis Selection Items Syncope History: CV Disease Selection Items Known CAD History: Other Disease Selection Items CAD HTN Labs Hgb (g/dl) Hct (%) RBC (MIL/MM3) WBC (l/cumm) Platelets (thousands) 11.60-17.00 35.00-51.00 4.00-5.90 4.00-11.00 150.00-450.00 10.6 31.9 3.6 6.5 175 Glucose (mg/dl) BUN (mg/dl) Creatinine (mg/dl) BUN:Creatinine (1:x) 74.00-106.00 7.00-18.00 0.50-1.30 10.00-20.00 144 31 1.4 22.1 Na (meq/l) K (meq/l) Cl (meq/l) CO2 (mmol/L) Ca (mg/dl) 136.00-145.00 3.50-5.10 98.00-107.00 21.00-32.00 8.50-10.10 140 3.7 103 29.5 8.6 INR (PTT:PT) 0.90-1.10 1 Medication Medication Total Dose (Bolus/Oral) Medication Total Dosage/Unit 2% XYLOCAINE 50 mL Medications (Bolus/Oral) Medication Time Given Dosage/Unit Administered By Reason 2% XYLOCAINE 01/18/2017 5:52:14 PM 50 mL Gabe Richmond For pain 50 mL 2% XYLOCAINE given in lab by Gabe Richmond via Subcutaneous. Ordered by Gabe Richmond. Reason: Fo r pain. Medication (Drip) Medication Time Given Dosage/Unit Concentration/Unit Diluent (ml) Solution ANCEF 01/18/2017 5:45:00 PM 2 g 2 g ANCEF given in lab by Marisela, ROM in Right Antecubital via Peripheral IV. Ordered by Gabe Richmond. Reason: As per physicians verbal order. IV Solutions 01/18/2017 5:43:54 PM 0 mL (IV) NaCl .9 IV Solutions given in lab by Brisa Freeman RN in Right Antecubital via Peripheral IV. Pump/Drip Jamaal w = 50 ml/hr using NaCl .9. Ordered by Gabe Richmond. Reason: As per physicians verbal order. IV Solutions 01/18/2017 5:44:30 PM 0 mL (IV) NaCl .9 IV Solutions given in lab by Brisa Freeman RN in Left Antecubital via Peripheral IV. Pump/Drip Flow = 50 ml/hr using NaCl .9. Ordered by Gabe Richmond. Reason: As per physicians verbal order. VANCOMYCIN DRIP 01/18/2017 5:30:00 PM 1 g 1 g VANCOMYCIN DRIP given in lab by Brisa Freeman, ELIEL in Right Antecubital via Peripheral IV. Ordere d by Gabe Richmond. Reason: As per physicians verbal order. Initial Case Assessment Cardiovascular HR NIBP 65 156/70 Edema Present Skin color Skin None Normal Warm Dry Neurological State Oriented to time-place- Alert Moves all extremities person Respiration - General Respiration Rate SpO2 (%) (B/min) 18 100 Final Case Assessment Cardiovascular HR NIBP Chest Pain 60 100/60 0 Edema Present Skin color Skin None Normal Warm Dry Neurological State Oriented to time-place- Alert Moves all extremities person Respiration - General Respiration Rate SpO2 (%) (B/min) 18 100 Chronological Log Time Study Chronological Log 17:12:00 Patient arrived via Bed. 17:13:00 Patient Name, D.O.B, / Armband Verified By R.N. Assessment: Initial Case, HR=65 BPM, QTWX=966/70 mmhg, Edema=None, Color=Normal, Skin = Warm, D ry 17:14:00 Neurological: State=Alert, Ox3, BARRAZA Respiration: Resp=18 B/min, LcF8=771 % 17:15:00 Consent signed by the physician and the patient and verified by the Maintenance Data Analyst staff. 17:16:00 Table restraints applied according to hospital policy 1 g VANCOMYCIN DRIP given in lab by Brisa Freeman RN in Right Antecubital via Peripheral IV. Ordered by Basilio 17:30:00 Gabe. Reason: As per physicians verbal order. 17:37:12 Pre-op and post- op instructions given; patient acknowledges understanding of instructions. 17:40:08 MD paged 17:40:10 MD arrived. 17:42:34 Verbal Stimulation=2 Physical Stimulation=2 Airway=2 Respiration=2 TOTAL=10. (0=absent, 1=l imited, 2=present) 17:42:56 Anesthesia at bedside. Assumes care of patient.Joshua CUETO 17:43:03 Presedation assessment performed by Maintenance Data Analyst RN. 17:43:06 Patient has been NPO for More than 6Hrs. 17:43:08 Skin Breakdown- none 17:43:21 Patient Warmer Placed on the Table. 17:43:23 Disposable Defibrillator Pads Placed On Patient. 17:43:26 Waqas Prominences Protected 17:43:30 A # 20 IV was noted in the Antecubital (right). Grade = ~GRADE~ 17:43:43 A # 18 IV was noted in the Antecubital (left). Grade = ~GRADE~ IV Solutions given in lab by Brisa Freeman RN in Right Antecubital via Peripheral IV. Pump/Dr ip Flow = 50 ml/hr using 17:43:54 NaCl .9. Ordered by Gabe Richmond. Reason: As per physicians verbal order. IV Solutions given in lab by Brisa Freeman RN in Left Antecubital via Peripheral IV. Pump/Dri p Flow = 50 ml/hr using 17:44:30 NaCl .9. Ordered by Gabe Richmond. Reason: As per physicians verbal order. 2 g ANCEF given in lab by AnesthesiaROM in Right Antecubital via Peripheral IV. Ordered by Gabe Strauss. Reason: 17:45:00 As per physicians verbal order. 17:45:54 Left Upper Chest Prepped Times Two. 17:46:17 Bovie ground pad applied to: right thigh 17:46:30 2% CHLORHEXIDINE GLUCONATE WASH AND NASAL SWIPE DONE PRIOR TO PROCEDURE. 17:46:33 Pre-procedure assessment data was performed with the previous procedure. First Sponge And Instrument Count Done by Antonia Carranza, RT(R) TECH2. 17:46:39 Hypo's: 4, Sponges: 25, Bovie/scratch: 2 Sutures: 6, Blades: 2, Instruments: 26, Syveck Patches: 0 17:51:00 Case Start Time Out. Correct patient, procedure, procedure equipment, site and side verified with physicia n present. Time 17:51:55 concurred by MD, individual staff and DESULPHURING OPERATOR. Time Out #2 - Consents verified, patient in correct position, all results are labled and displa yed, safety precautions 17:51:59 taken, antibiotics administered. Time out concurred by MD, individual staff and DESULPHURING OPERATOR in procedu re 17:52:14 50 mL 2% XYLOCAINE given in lab by Gabe Richmond via Subcutaneous. Ordered by Gabe Richmond. Reason: For pain. 17:53:10 The Subclav. Vein (Lft was manually injected with 10 cc's of contrast. OMNIPAQUE, 350 MG, 5 0ML 50ML used. 17:54:30 Vascular access was obtained in the Subclav. Vein (Lft. 17:55:35 Reference ECG taken 17:58:19 A pocket was created at the L Upper Chest. 17:58:25 A SAFE SHEATH, FR6, 13CM FR 6 was advanced into the Subclav. Vein (Lft using the Modified S eldinger technique. 17:58:52 A LEAD, SOLIA 60 PRO MRI * was inserted and positioned in the RV. 18:01:32 Lead placement verified under fluoroscopy 18:03:11 The RV lead impedance and threshold being tested. 18:03:14 The RV lead was sutured to the fascia. 18:04:46 Vascular access was obtained in the Subclav. Vein (Lft. 18:05:00 A SAFE SHEATH, FR6, 13CM FR 6 was advanced into the Subclav. Vein (Lft using the Modified S eldinger technique. 18:06:47 A LEAD, SOLIA 60 53 PRO MRI * was inserted and positioned in the RA. 18:06:56 Lead placement verified under fluoroscopy 18:09:00 The Atrial lead impedance and threshold is being tested. 18:09:03 The Atrial lead was sutured to the fascia. 18:12:11 A PACEMAKER, ELUNA 8 DR-T DDDR was connected and placed in the pocket. Second Sponge And Instrument Count Done by Antonia Carranza RT(R) TECH2. 18:13:57 Hypo's: 4, Sponges: 25, Bovie/scratch: 2 Sutures: ~SUTURE~, Blades: 2, Instruments: ~INSTRU~, Syveck Patches: ~SYVECK PATCH~ 18:14:35 Implant Procedure was performed. 18:14:46 A PPM Implant . (Dual) 18:15:58 The pocket was closed. 18:22:41 Steri-strips and a sterile dressing applied to site. The Final Sponge And Instrument Count Done by Gabe Richmond. 18:22:47 Hypo's: 4, Sponges: 25, Bovie/scratch: 2 Sutures: 6, Blades: 2, Instruments: 26, Syveck Patches: 0 18:23:43 A sling was placed on the affected arm. 18:23:51 Bedside Report will be given. Assessment: Final Case, HR=60 BPM, JQUM=797/60 mmhg, Chest Pain=0, Edema=None, Color=Normal, Sk in = Warm, Dry 18:24:20 Neurological: State=Alert, Ox3, BARRAZA Respiration: Resp=18 B/min, SeQ7=008 % 18:24:52 No case complications noted. 18:24:55 Cine recording checked. 18:25:01 Holding Area notified of successful intervention. 18:25:03 Implantable Device card placed in patient's chart. 18:25:05 Contrast Scanned 18:25:06 Defibrillator and ground pads removed. Skin intact. 18:30:00 Case End 18:45:00 Patient [facility] to [facility] and transported to [facility] in stable condition. End Study - Contrast Media Used In Study Contrast Total Opened (mL) Total Used (mL) Total Wasted (mL) Omnipaque 50 10 40 End Study - Maximum Contrast Load Max Contrast Load (mL) 364.3 End Study - Radiation Exposure Fluoro Time (minutes) 4.8 End Study - Patient Disposition Complications Transferred To Interventional Outcome No Telemetry Bed successful
[2017-01-18] MEDS ORDERED: MIDAZOLAM HCL 2 MG/2 ML VIAL ONE (18:40)
[2017-01-18] MEDS ORDERED: ZOLPIDEM TARTRATE 5 MG TAB PO PRN (18:45)
[2017-01-18] MEDS ORDERED: traMADol HCL 50 MG TAB PO PRN (18:45)
--- NOTE | 2017-01-18 19:46 | RADRPT ---
EXAM DATE/TIME: 01/18/2017 18:47 [facility] COMPARISON: CHEST SINGLE AP, January 18, 2017, 8:18. INDICATIONS : Post op pacemaker placement MEDICAL HISTORY : Hypertension. Diabetes mellitus type 2. Coronary artery disease SURGICAL HISTORY : CABG. ENCOUNTER: Initial ACUITY: 1 day PAIN SCORE: 0/10 LOCATION: Bilateral chest FINDINGS: Persistent infiltrates in the medial right lower lung causing loss of delineation of portion of the r ight heart border. There is also blunting of the costophrenic angle on the right side characteristic of stable size pleural effusion. Left lung is clear. Left hemidiaphragm is well delineated. The h eart is mildly enlarged. CONCLUSION: Persistent, possibly increasing, right medial lower lung infiltrates. Rancho Asif MD on January 18, 2017 at 19:43 Board Certified Radiologist. This report was verified electronically.
[2017-01-19] VITALS (12 sets, daily range): BP systolic 136–143; BP diastolic 73–75; PULSE 60–73; TEMP 98.1–98.3; O2SAT 94–98
[2017-01-19] MEDS: SODIUM CHLOR 0.9% 1000 ML INJ 1,000 ML IV SCH ×2 (03:55→07:47)
[2017-01-19] MEDS: CARBIDOPA/LEVODOPA 25 MG/100 MG TAB PO SCH (05:24)
[2017-01-19 06:26] LABS: AUTOMATED NEUTROPHIL # 5.1 TH/MM3 (1.8-7.7); BASOPHIL % 0.5 % (0.0-2.0); EOSINOPHIL # 0.2 TH/MM3 (0-0.4); EOSINOPHIL % 3.1 % (0.0-4.0); HEMATOCRIT 31.4 % (39.0-51.0); HEMO FLAGS DIFF FINAL; LYMPH % 9.7 % (9.0-44.0); LYMPHOCYTE # 0.7 TH/MM3 (1.0-4.8); MEAN CELL VOLUME 87.1 FL (80.0-100.0); MEAN CORPUSCULAR HEMOGLOBIN 29.4 PG (27.0-34.0); MEAN CORPUSCULAR HGB CONC 33.8 % (32.0-36.0); MONO % 10.9 % (0.0-8.0); NEUT % 75.8 % (16.0-70.0); PLATELET COUNT 140 TH/MM3 (150-450); RED BLOOD COUNT 3.61 MIL/MM3 (4.50-5.90); WHITE BLOOD COUNT 6.8 TH/MM3 (4.0-11.0)
[2017-01-19] MEDS ORDERED: VANCOMYCIN INJ 1,000 MG in SODIUM CHLOR 0.9% 250 ML INJ 250 ML IV SCH ×2 (06:30→16:30)
[2017-01-19 06:54] LABS: ALT (GPT) 7 U/L (12-78); ANION GAP 6 MEQ/L (5-15); AST (GOT) 16 U/L (15-37); BLOOD UREA NITROGEN 24 MG/DL (7-18); CHLORIDE 108 MEQ/L (98-107); GLOMERULAR FILTRATION RATE 59 ML/MIN (>89); POTASSIUM 3.6 MEQ/L (3.5-5.1); SODIUM (NA) 142 MEQ/L (136-145)
[2017-01-19 06:56] LABS: ALKALINE PHOSPHATASE 54 U/L (45-117); TOTAL BILIRUBIN ADULT 0.4 MG/DL (0.2-1.0)
[2017-01-19] MEDS: PRAVASTATIN SOD 80 MG TAB PO SCH (07:45)
[2017-01-19] MEDS: SODIUM CHLORIDE 0.9% FLUSH 10 ML FLUSH IV FLUSH SCH (07:46)
[2017-01-19] MEDS: buPROPion HCL 150 MG SUSTAINED RELEASE TAB PO SCH (07:46)
[2017-01-19] MEDS: ASPIRIN 81 MG CHEW TAB CHEW SCH (07:46)
--- NOTE | 2017-01-19 08:06 | MP ---
cc: LUANA HOPE M.D., GLENN H. M.D. DATE OF SURGERY: 01/18/2017 PROCEDURE Dual-chamber permanent pacemaker implantation via left subclavian vein. INDICATIONS Symptomatic bradycardia, syncope. OPERATIVE NOTE The patient was brought to the operating suite in a fasting state after having signed informed consent. The left upper chest was prepped and draped as per policy and anesthetized with 1% lidocaine. After administration of 10 ccs of contrast through a left arm peripheral IV, central venous access was obtained twice without difficulty via the left subclavian vein using modified Seldinger technique. A transverse incision was made inferior to the left clavicle and using blunt dissection a subcutaneous pocket was formed down to the pectoralis fascia. Over the more lateral guidewire a 6-[place] sheath was placed and through this sheath an active fixation ventricular lead was introduced and its tip positioned in the right ventricular apex where good current of injury, stimulation threshold (0.8 volts) and sensitivity (11 mV) were demonstrated. This lead was secured into place using 2-0 silk ties down to the pectoralis fascia. Over the remaining guidewire another 6-[place] sheath was placed and through this sheath an atrial active fixation lead was introduced and its tip positioned in the right atrial appendage where good current of injury, stimulation threshold (1.1 volts) and sensitivity (2 mV) were demonstrated. This lead was secured into place using 2-0 silk ties down to the pectoralis fascia. The leads were then connected to the pacemaker generator which is a Biotronik Eluna device. The leads and the generator were then placed back into the subcutaneous pocket which was closed using 3-0 Vicryl interrupted stitches in two layers to close the subcutaneous tissue and then 4-0 Monocryl running stitch to close the subcuticular tissue. Overlapping Steri-Strips and a pressure dressing were applied. There were no apparent immediate complications. A portable chest x-ray is pending at the time of this dictation. CONCLUSION Successful dual-chamber permanent pacemaker implantation via the left subclavian vein using a Biotronik Eluna pacemaker generator. MD MOIRA Deras/FIFI /6:31 PM /7:56 AM GARDENIA
--- NOTE | 2017-01-19 08:18 | PD.CARD.PN ---
Subjective Subjective Remarks Feels good. Minimal incisional pain. No dyspnea, CP, dizziness. Objective Medications Item Value Date Time Aspirin 81 mg 01/18/17 1130 (Aspirin Chew) DAILY/CHEW 01/19/17 0746 Pravastatin Sodium 80 mg 01/18/17 1130 (Pravachol) DAILY/PO 01/19/17 0745 Vital Signs / I&O Vital Signs Date Time Temp Pulse Resp B/P Pulse Ox O2 Delivery O2 Flow Rate FiO2 01/19/17 06:09 68 01/19/17 05:00 63 01/19/17 04:55 70 01/19/17 03:00 71 01/19/17 03:00 98.3 72 136/75 96 01/19/17 02:00 72 01/19/17 01:00 72 01/19/17 00:53 98.1 73 143/73 98 01/19/17 00:00 72 01/18/17 23:00 73 01/18/17 22:00 74 01/18/17 21:00 74 01/18/17 21:00 97.5 65 136/60 100 01/18/17 20:00 64 01/18/17 19:00 77 01/18/17 17:00 60 01/18/17 16:56 61 01/18/17 15:00 97.1 100 17 134/74 98 01/18/17 15:00 60 01/18/17 11:30 96 21 01/18/17 11:28 65 01/18/17 09:55 58 20 125/56 01/18/17 08:40 47 20 116/58 I/O 01/18/17 01/18/17 01/18/17 01/19/17 01/19/17 01/19/17 07:00 15:00 23:00 07:00 15:00 23:00 Intake Total 30 ml 240 ml Output Total 300 ml 950 ml Balance -270 ml -710 ml Intake Oral 0 ml 240 ml IV Total 30 ml Output Urine Total 300 ml 950 ml # Bowel Movements 0 Physical Exam Pacer site clean, dry, intact, nontender, no hematoma. Laboratory Laboratory Tests Test 01/18/17 01/18/17 01/18/17 01/19/17 08:30 14:56 20:49 05:15 White Blood Count 6.5 TH/MM3 6.8 TH/MM3 Red Blood Count 3.63 MIL/MM3 3.61 MIL/MM3 Hemoglobin 10.6 GM/DL 10.6 GM/DL Hematocrit 31.9 % 31.4 % Mean Corpuscular Volume 88.0 FL 87.1 FL Mean Corpuscular Hemoglobin 29.2 PG 29.4 PG Mean Corpuscular Hemoglobin 33.2 % 33.8 % Concent Red Cell Distribution Width 13.9 % 14.0 % Platelet Count 175 TH/MM3 140 TH/MM3 Mean Platelet Volume 8.0 FL 8.4 FL Neutrophils (%) (Auto) 73.4 % 75.8 % Lymphocytes (%) (Auto) 12.7 % 9.7 % Monocytes (%) (Auto) 9.6 % 10.9 % Eosinophils (%) (Auto) 3.7 % 3.1 % Basophils (%) (Auto) 0.6 % 0.5 % Neutrophils # (Auto) 4.8 TH/MM3 5.1 TH/MM3 Lymphocytes # (Auto) 0.8 TH/MM3 0.7 TH/MM3 Monocytes # (Auto) 0.6 TH/MM3 0.7 TH/MM3 Eosinophils # (Auto) 0.2 TH/MM3 0.2 TH/MM3 Basophils # (Auto) 0.0 TH/MM3 0.0 TH/MM3 CBC Comment DIFF FINAL DIFF FINAL Differential Comment Prothrombin Time 11.5 SEC Prothromb Time International 1.0 RATIO Ratio Activated Partial 26.4 SEC Thromboplast Time Sodium Level 140 MEQ/L 142 MEQ/L Potassium Level 3.7 MEQ/L 3.6 MEQ/L Chloride Level 103 MEQ/L 108 MEQ/L Carbon Dioxide Level 29.5 MEQ/L 28.0 MEQ/L Anion Gap 8 MEQ/L 6 MEQ/L Blood Urea Nitrogen 31 MG/DL 24 MG/DL Creatinine 1.40 MG/DL 1.20 MG/DL Estimat Glomerular Filtration 49 ML/MIN 59 ML/MIN Rate Random Glucose 144 MG/DL 109 MG/DL Calcium Level 8.6 MG/DL 8.6 MG/DL Magnesium Level 2.3 MG/DL Total Creatine Kinase 63 U/L Troponin I LESS THAN 0.02 LESS THAN 0.02 0.13 NG/ML NG/ML NG/ML Thyroid Stimulating Hormone 3.630 uIU/ML 3rd Gen Total Bilirubin 0.4 MG/DL Aspartate Amino Transf 16 U/L (AST/SGOT) Alanine Aminotransferase 7 U/L (ALT/SGPT) Alkaline Phosphatase 54 U/L Total Protein 6.7 GM/DL Albumin 3.0 GM/DL Imaging Last 48 hours Impressions Chest X-Ray 01/18/17 1836 Signed Impressions: Service Date/Time: Wednesday, January 18, 2017 18:47 - CONCLUSION: Persistent, possibly increasing, right medial lower lung infiltrates. Rancho Asif MD Chest X-Ray 01/18/17 0749 Signed Impressions: Service Date/Time: Wednesday, January 18, 2017 08:18 - CONCLUSION: 1. 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 2. No acute abnormality or significant interval change. Ronen Zamora MD Carotid Artery Ultrasound 01/18/17 0000 Signed Impressions: Service Date/Time: Wednesday, January 18, 2017 12:19 - CONCLUSION: 1. 50-69%% stenoses involving the proximal ICAs bilaterally. This can be further assessed with CTA of the carotid arteries if clinically warranted. 2. Antegrade flow involving both vertebral arteries. Rancho Navarro Jr., MD Assessment and Plan Problem List: (1) Symptomatic bradycardia Assessment and Plan: Stable s/p DDD pacer implant for symptomatic bradycardia. Pacer site OK. Pacer re-interrogation shows good, stable pacing parameters. OK to discharge home today, same home medications plus Levaquin 500 mg qd for 5 days, one week f/u in our office for incision/pacer recheck (2) CAD (coronary artery disease) Assessment and Plan: Stable CAD status. Patient exercising (walking) daily without angina symptoms. Continue medical therapy. Rec resume usual home medications. (3) Hypertension Assessment and Plan: Stable. Normotensive. Rec resume usual home cardiac medications. Code Status full code Discussed Condition With patient Problem Qualifiers (1) CAD (coronary artery disease): Qualified Code: I25.10 - Coronary artery disease involving [place] coronary artery of [place] heart without angina pectoris (2) Hypertension: Qualified Code: I10 - Essential hypertension Gabe Richmond MD Jan 19, 2017 08:18
[2017-01-19] MEDS ORDERED: LISINOPRIL 20 MG TAB PO SCH (09:00)
[2017-01-19] MEDS ORDERED: LEVOFLOXACIN 500 MG TAB PO SCH (09:00)
[2017-01-19] MEDS ORDERED: FUROSEMIDE 40 MG TAB PO SCH (09:00)
[2017-01-19] MEDS ORDERED: METOPROLOL SUCCINATE 50 MG EXTENDED RELEASE TAB PO SCH (09:00)
[2017-01-19] MEDS ORDERED: LEVA500T20 PO (10:02)
--- NOTE | 2017-01-19 10:03 | HHI.DCPOC ---
Discharge Care Plan Diagnosis: (1) Symptomatic bradycardia Goals to Promote Your Health * To prevent worsening of your condition and complications, follow up with your primary care physician and federal air marshal within one week after hospital discharge. Directions to Meet Your Goals Take your medications as prescribed Follow your dietary instruction Follow activity as directed Keep your appointments as scheduled Take your immunizations and boosters as scheduled If your symptoms worsen call your PCP, if no PCP go to Urgent Care Center or Emergency Room Smoking is Dangerous to Your Health. Avoid second hand smoke Call the 24-hour hour crisis hotline for domestic abuse at Mike Lopez MD R1 Jan 19, 2017 10:03
--- NOTE | 2017-01-19 10:04 | HHI.FPPN ---
Subjective Remarks No acute events overnight. Afebrile, vital signs within normal limits. Patient does not have any complaints this morning. He denies CP, SOB, fevers or chills, cough, pain anywhere else. States he has been ambulatory within room without issues. Denies lightheadedness, dizziness, palpitations, PADILLA. (Mike Lopez MD R1) Objective Vitals Vital Signs Date Time Temp Pulse Resp B/P Pulse Ox O2 Delivery O2 Flow Rate FiO2 01/19/17 10:00 62 01/19/17 09:20 68 01/19/17 08:00 60 01/19/17 08:00 98.2 68 137/75 94 01/19/17 08:00 68 01/19/17 06:09 68 01/19/17 05:00 63 01/19/17 04:55 70 01/19/17 03:00 71 01/19/17 03:00 98.3 72 136/75 96 01/19/17 02:00 72 01/19/17 01:00 72 01/19/17 00:53 98.1 73 143/73 98 01/19/17 00:00 72 01/18/17 23:00 73 01/18/17 22:00 74 01/18/17 21:00 74 01/18/17 21:00 97.5 65 136/60 100 01/18/17 20:00 64 01/18/17 19:00 77 01/18/17 17:00 60 01/18/17 16:56 61 01/18/17 15:00 97.1 100 17 134/74 98 01/18/17 15:00 60 01/18/17 11:30 96 21 01/18/17 11:28 65 I/O 01/18/17 01/18/17 01/18/17 01/19/17 01/19/17 01/19/17 07:00 15:00 23:00 07:00 15:00 23:00 Intake Total 30 ml 240 ml Output Total 300 ml 950 ml Balance -270 ml -710 ml Intake Oral 0 ml 240 ml IV Total 30 ml Output Urine Total 300 ml 950 ml # Bowel Movements 0 (Mike Lopez MD R1) Result Diagram: 01/19/1715 01/19/17 0515 Objective Remarks GENERAL: NAD NEURO: AOx3. Normal speech. environmental issues instructor grossly intact. Motor grossly intact. SKIN: Warm and dry. No rashes or erythema. HEAD: Normocephalic. Atraumatic. EYES: PERRL. EOMI. No scleral icterus. No injection or drainage. NECK: Supple, trachea midline. No JVD. CARDIOVASCULAR: RRR. No M/r/g. Peripheral pulses 2+. Capillary refill < 2 seconds. RESPIRATORY: Breath sounds clear to auscultation and equal bilaterally, without wheezes, rales, or rhonchi. No accessory muscle use. GASTROINTESTINAL: Abdomen soft, nontender, nondistended MUSCULOSKELETAL: No lower extremity edema. Normal range of motion. BACK: Without obvious deformity. (Mike Lopez MD R1) A/P Assessment and Plan 76 year old man presenting following a syncopal episode admitted for symptomatic bradycardia Discharge Planning Stable for discharge home today with f/u with PCP and cardiology within one week (Mike Lopez MD R1) Attending Attestation Pt. examined and case discussed with resident physicians I have read the above note and agree with the assessment/plan as discussed with me I was involved in all medical decision making for this patient William Frederick MD ( (William Frederick MD) Problem List: (1) Symptomatic bradycardia Status: Resolved Plan: Patient's syncopal episode likely due to severe bradycardia - Initial EKG showing sinus bradycardia with HR of 38 bpm, intraventricular conduction delay, low voltage, no acute ST changes - Troponins 0.02 -> 0.02 -> 0.13 - Per cardiology recs, patient will continue regular home medications upon discharge - Consult cardiology, placed a cardiac pacemaker 01/18/2017 - Carotid US demonstrating 50-69% stenoses involving the proximal ICAs bilaterally. Antegrade flow involving both vertebral arteries (2) Syncope Status: Resolved Plan: - Plan as above - Neuro exam nonfocal and reassuring, not suspecting CVA - History not c/w seizure activity - Accuchecks ACHS (3) AGUSTIN (acute kidney injury) Status: Resolved Plan: - Cr on admission 1.40; baseline ~1.00; resolved today downtrending to 1.20 - Consider pre-renal etiology due to renal hypoperfusion, dehydration - MIVF with NS at 140 cc/hr - Avoid nephrotoxic agents (4) CAD (coronary artery disease) Status: Chronic Plan: - Continue baby aspirin - Cardiology consulted, resume regular home medications on discharge and continue follow up with cardiology as outpatient (5) DM (diabetes mellitus) Status: Chronic Plan: - Accuchecks ACHS - Patient not on any home antihyperglycemic agents (6) Hypertension Status: Chronic Plan: - BPs WNL - Resume home antihypertensives on discharge per cardiology recommendations (7) Hyperlipidemia Status: Chronic Plan: - Continue pravastatin 80 mg po daily (8) Nutrition, metabolism, and development symptoms Status: Acute Plan: Fluids: None Electrolytes: WNL Nutrition: 1800 ADA DVT ppx: b/l SCDs (Mike Lopez MD R1) Problem Qualifiers (1) Syncope: Qualified Code: R55 - Syncope, unspecified syncope type (2) CAD (coronary artery disease): Qualified Code: I25.10 - Coronary artery disease involving [place] coronary artery of [place] heart without angina pectoris (3) Hypertension: Qualified Code: I10 - Essential hypertension Mike Lopez MD R1 Jan 19, 2017 10:04 William Frederick MD Jan 19, 2017 16:36
--- NOTE | 2017-01-19 12:55 | ECHRPT ---
Indication: syncope CONCLUSIONS Normal left ventricular size. Mild concentric left ventricular hypertrophy. The left ventricular systolic function is low normal with an estimated ejection fraction in the rang e of 50- 55%. Structurally normal mitral valve Trace mitral valve regurgitation. The aortic valve is not well visualized. Trace aortic valve regurgitation. No aortic valve stenosis. The tricuspid valve is not well visualized. There is trace tricuspid valve regurgitation. The pulmonary valve is not well visualized. BP: 125 / 56 HR: 58 Rhythm: MEASUREMENTS (Male / Female) Normal Values Technical Quality:Very technically difficult study 2D ECHO LV Diastolic Diameter PLAX 4.9 cm 4.2 - 5.9 / 3.9 - 5.3 cm LV Systolic Diameter PLAX 3.8 cm IVS Diastolic Thickness 1.0 cm 0.6 - 1.0 / 0.6 - 0.9 cm LVPW Diastolic Thickness 1.3 cm 0.6 - 1.0 / 0.6 - 0.9 cm LV Relative Wall Thickness 0.5 RV Internal Dim ED PLAX 2.5 cm M-MODE Aortic Root Diameter MM 3.4 cm LA Systolic Diameter MM 4.6 cm LA Ao Ratio MM 1.4 AV Cusp Separation MM 1.9 cm DOPPLER Mitral E Point Velocity 89.8 cm/s Mitral A Point Velocity 78.5 cm/s Mitral E to A Ratio 1.1 LV E' Lateral Velocity 8.1 cm/s Mitral E to LV E' Lateral Ratio 11.1 LV E' Septal Velocity 5.8 cm/s Mitral E to LV E' Septal Ratio 15.6 TR Peak Velocity 271.0 cm/s TR Peak Gradient 29.4 mmHg FINDINGS LEFT VENTRICLE Normal left ventricular size. Mild concentric left ventricular hypertrophy. The left ventricular systolic function is low normal with an estimated ejection fraction in the rang e of 50- 55%. RIGHT VENTRICLE Normal right ventricular size and systolic function. LEFT ATRIUM The left atrial size is normal. RIGHT ATRIUM The right atrial size is normal. ATRIAL SEPTUM Normal atrial septal thickness without atrial level shunting by limited color doppler interrogation. AORTA The aortic root and proximal ascending aorta are normal in size on limited imaging. MITRAL VALVE Structurally normal mitral valve Trace mitral valve regurgitation. AORTIC VALVE The aortic valve is not well visualized. Trace aortic valve regurgitation. No aortic valve stenosis. TRICUSPID VALVE The tricuspid valve is not well visualized. There is trace tricuspid valve regurgitation. PULMONARY VALVE The pulmonary valve is not well visualized. VESSELS The inferior vena cava is normal in size. PERICARDIUM No pericardial effusion. Virgil Calvillo MD, FACC (Electronically Signed) Final Date:19 January 2017 12:55
--- NOTE | 2017-01-19 15:00 | EKG ---
Date Performed: 01/18/2017 Time Performed: 07:44:47 PTAGE: 76 years EKG: SINUS BRADYCARDIA INTRAVENTRICULAR CONDUCTION DELAY ABNORMAL ECG PREVIOUS TRACING : 06/22/2015 15.53 Since previous tracing, no significant change noted DOCTOR: Bushra Goff Interpretating Date/Time 01/19/2017 14:59:44
[2017-01-19] MEDS ORDERED: ceFAZolin INJ 1,000 MG in SODIUM CHLORIDE 0.9% INJ 250 ML IV SCH (16:30)
[2017-01-20] MEDS ORDERED: ISOSORBIDE MONONITRATE 30 MG TAB PO SCH (07:00)
--- NOTE | 2017-01-20 13:20 | HHI.DS ---
Discharge Summary Admission Date Jan 18, 2017 at 10:41 Admitting Diagnosis syncope, symptomatic bradycardia (1) Symptomatic bradycardia Plan: Patient's syncopal episode likely due to severe bradycardia - Initial EKG showing sinus bradycardia with HR of 38 bpm, intraventricular conduction delay, low voltage, no acute ST changes - Troponins 0.02 -> 0.02 -> 0.13 - Per cardiology recs, patient will continue regular home medications upon discharge - Consult cardiology, placed a cardiac pacemaker 01/18/2017 - Carotid US demonstrating 50-69% stenoses involving the proximal ICAs bilaterally. Antegrade flow involving both vertebral arteries (2) Syncope Plan: - Plan as above - Neuro exam nonfocal and reassuring, not suspecting CVA - History not c/w seizure activity - Accuchecks ACHS (3) AGUSTIN (acute kidney injury) Plan: - Cr on admission 1.40; baseline ~1.00; resolved today downtrending to 1.20 - Consider pre-renal etiology due to renal hypoperfusion, dehydration - MIVF with NS at 140 cc/hr - Avoid nephrotoxic agents (4) CAD (coronary artery disease) Plan: - Continue baby aspirin - Cardiology consulted, resume regular home medications on discharge and continue follow up with cardiology as outpatient (5) DM (diabetes mellitus) Plan: - Accuchecks ACHS - Patient not on any home antihyperglycemic agents (6) Hypertension Plan: - BPs WNL - Resume home antihypertensives on discharge per cardiology recommendations (7) Hyperlipidemia Plan: - Continue pravastatin 80 mg po daily (8) Nutrition, metabolism, and development symptoms Plan: Fluids: None Electrolytes: WNL Nutrition: 1800 ADA DVT ppx: b/l SCDs Brief History 76-year-old male presenting to the emergency department after a syncopal episode this morning. He was at breakfast with his son when he began feeling lightheaded/dizzy for approximately 10-15 seconds prior to "passing out". He fell to the ground and was unresponsive for several minutes before regaining consciousness. There was no seizure type activity such as tonic/clonic shaking , tongue biting, or loss of bowel/bladder activity. There was no postictal type state either. When he was brought to the emergency department he was found to have a heart rate in the 30s and was given atropine 1 with resumption of his heart rate into the 60s. He states that he had a syncopal episode similar to this approximately 4 months ago while getting a haircut. Symptoms were similar with some dizziness/ lightheadedness for several seconds prior to passing out. He does not recall how long he was out/unconsciousness at his previous episode. He did not see a physician after this previous syncopal episode. He does have a history of CAD status post CABG in 1983 and subsequent stenting of his LAD in 11/2012. He also has a past medical history for diabetes mellitus, hypertension, hyperlipidemia, and Parkinson's disease. CBC/BMP: 01/19/17 0515 01/19/17 0515 Significant Findings Laboratory Tests Test 01/18/17 01/18/17 01/18/17 01/19/17 08:30 14:56 20:49 05:15 Red Blood Count 3.63 MIL/MM3 3.61 MIL/MM3 (4.50-5.90) (4.50-5.90) Hemoglobin 10.6 GM/DL 10.6 GM/DL (13.0-17.0) (13.0-17.0) Hematocrit 31.9 % 31.4 % (39.0-51.0) (39.0-51.0) Neutrophils (%) (Auto) 73.4 % 75.8 % (16.0-70.0) (16.0-70.0) Monocytes (%) (Auto) 9.6 % (0.0-8.0) 10.9 % (0.0-8.0) Lymphocytes # (Auto) 0.8 TH/MM3 0.7 TH/MM3 (1.0-4.8) (1.0-4.8) Blood Urea Nitrogen 31 MG/DL (7-18) 24 MG/DL (7-18) Creatinine 1.40 MG/DL (0.60-1.30) Estimat Glomerular Filtration 49 ML/MIN (>89) 59 ML/MIN (>89) Rate Random Glucose 144 MG/DL 109 MG/DL (74-106) (74-106) Troponin I LESS THAN 0.02 LESS THAN 0.02 0.13 NG/ML NG/ML NG/ML (0.02-0.05) (0.02-0.05) (0.02-0.05) Platelet Count 140 TH/MM3 (150-450) Chloride Level 108 MEQ/L (98-107) Alanine Aminotransferase 7 U/L (12-78) (ALT/SGPT) Albumin 3.0 GM/DL (3.4-5.0) PE at Discharge GENERAL: NAD NEURO: AOx3. Normal speech. care partner grossly intact. Motor grossly intact. SKIN: Warm and dry. No rashes or erythema. HEAD: Normocephalic. Atraumatic. EYES: PERRL. EOMI. No scleral icterus. No injection or drainage. NECK: Supple, trachea midline. No JVD. CARDIOVASCULAR: RRR. No M/r/g. Peripheral pulses 2+. Capillary refill < 2 seconds. RESPIRATORY: Breath sounds clear to auscultation and equal bilaterally, without wheezes, rales, or rhonchi. No accessory muscle use. GASTROINTESTINAL: Abdomen soft, nontender, nondistended MUSCULOSKELETAL: No lower extremity edema. Normal range of motion. BACK: Without obvious deformity. Pt Condition on Discharge: Stable Discharge Disposition: Discharge Home Discharge Instructions DIET: Follow Instructions for: Diabetic Diet Activities you can perform: Regular-No Restrictions Darlin Lares MD R1 Jan 20, 2017 13:20
== END 2017-01-19 11:46 | disposition home or self-care (01) | DRG 243 ==
LOC: NEPE 07:33 → NEDA 10:41 → HCIN 15:32
PROVIDERS: ADMIT Family Medicine; ATTEND Family Medicine
PROC: 02H63JZ Insertion of Pacemaker Lead into Right Atrium, Percutaneous Approach (ICD-10-PCS; 2017-01-18)
PROC: 02HK3JZ Insertion of Pacemaker Lead into Right Ventricle, Percutaneous Approach (ICD-10-PCS; 2017-01-18)
PROC: 0JH606Z Insertion of Pacemaker, Dual Chamber into Chest Subcutaneous Tissue and Fascia, Open Approach (ICD-10-PCS; principal; 2017-01-18 11:15)
DX: R00.1 Bradycardia, unspecified (principal); N17.9 Acute kidney failure, unspecified; E11.22 Type 2 diabetes mellitus with diabetic chronic kidney disease; I13.0 Hypertensive heart and chronic kidney disease with heart failure and stage 1 through stage 4 chronic kidney disease, or unspecified chronic kidney disease; G20 Parkinson's disease; I50.9 Heart failure, unspecified; I45.9 Conduction disorder, unspecified; E86.0 Dehydration; N18.2 Chronic kidney disease, stage 2 (mild); E78.5 Hyperlipidemia, unspecified; H91.90 Unspecified hearing loss, unspecified ear; I25.10 Atherosclerotic heart disease of native coronary artery without angina pectoris; Z95.5 Presence of coronary angioplasty implant and graft; I25.2 Old myocardial infarction; Z95.1 Presence of aortocoronary bypass graft; Z87.891 Personal history of nicotine dependence
CPT/HCPCS: 33208; 71010; 76937; 80048; 80053; 82550; 82948; 83735; 84443; 84484; 85025; 85610; 85730; 93005; 93306; 93880; 96361; 96374; C1785; C1898; G0378; J0461; J0690; J2250; J3010; J3370; J7030; J7040; Q9967

== ENCOUNTER 2017-03-14 13:02 | Emergency (ER) | payer MEDICARE, BC ==
[~2017-03-14] VITALS: Ht 185.4 cm; Wt 75.0 kg
[~2017-03-14 13:02] MED LIST changes: +ASPI81CH PO; -ASPI81TA82 PO; +BUPR1TAB70 PO; +CARB25TA9 PO; -FURO1TAB93 PO; +FURO40TA PO; +LEVA500T20 PO; -LISI-363 PO; +LISI40TA PO; -METF-324 PO; -NITR.4 SL; +NITR1SUB3 SL; -PERC5TAB12 PO; -SINE25100 PO
[2017-03-14 13:05] VITALS: BP 97/47; PULSE 88; RESP 15; TEMP 97.8; O2SAT 97
--- NOTE | 2017-03-14 13:09 | PD ---
Physical Exam Time Seen by Provider: 13:06 Narrative 76-year-old male presents with concern of low blood pressure for the past few days. Had pacemaker placed on January 19. Reports lightheadedness. Denies syncope. Denies chest pain. Denies change in shortness of breath. Patient seen in triage. Vital signs reviewed. Patient taken to medical bed. Data Data Last Documented VS Vital Signs Date Time Temp Pulse Resp B/P (MAP) Pulse Ox O2 Delivery O2 Flow Rate FiO2 03/14/17 13:05 97.8 88 15 97/47 (64) 97 MDM Supervised Visit with SHANKAR: Stephanie Alonzo Mar 14, 2017 13:09
--- NOTE | 2017-03-14 13:16 | PD ---
HPI Chief Complaint: Cardiac Complaint Time Seen by Provider: 13:12 Travel History International Travel<30 days: No Contact w/Intl Traveler<30days: No Traveled to known affect area: No History of Present Illness HPI 76-year-old male came to the emergency room with history of hypotension. Patient says that today he checked his blood pressure and it was 115. That is less than his usual. Patient is on a lot of medications for high blood pressure. No history of chest pain. No history of syncopal episode. He is not lightheaded. Blood pressure in the emergency room was in 100s to 1 teens. Patient is awake and answering questions appropriately. He has a pacemaker that was put in 3 months ago with the machine in his pocket. His resource specialist teacher is Dr. Nobles. [facility] Past Medical History Narrative Medical List of his past medical, surgical, social and family history is reviewed from the nursing note. Arthritis: No Asthma: No Autoimmune Disease: No Anxiety: No Depression: No Heart Rhythm Problems: No Cancer: No Cardiac Catheterization: Yes Cardiovascular Problems: Yes High Cholesterol: Yes Chemotherapy: No Chest Pain: Yes Congestive Heart Failure: Yes COPD: No Cerebrovascular Accident: No Coronary Artery Disease: Yes Diabetes: Yes Diminished Hearing: Yes ([place]) Endocrine: Yes GERD: No Genitourinary: No Hiatal Hernia: No Hypertension: Yes Immune Disorder: No Kidney Stones: No Musculoskeletal: No Parkinson's Disease: Yes Psychiatric: No Reproductive: No Respiratory: No Migraines: No Myocardial Infarction: Yes Radiation Therapy: No Renal Failure: No Sickle Cell Disease: No Sleep Apnea: No Thyroid Disease: No Ulcer: No ?: Not Past Surgical History Abdominal Surgery: No AICD: No Arteriovenous Shunt: No Cardiac Surgery: No Coronary Artery Bypass Graft: Yes Ear Surgery: No Endocrine Surgery: No Genitourinary Surgery: No Gynecologic Surgery: No Insulin Pump: No Joint Replacement: No Oral Surgery: No Pacemaker: No Thoracic Surgery: No Tonsillectomy: Yes Other Surgery: Yes (CABG X 3) Social History Alcohol Use: Yes (4-6 BEERS A WEEK) Tobacco Use: No Substance Use: No Allergies-Medications (Allergen,Severity, Reaction): Coded Allergies: No Known Allergies (Unverified , 03/14/17) Comments No known drug allergies. Reported Meds & Prescriptions Reported Meds & Active Scripts Active Reported Bupropion HCl ER 12 HR (Bupropion HCl) 150 Mg Tab 150 Mg PO Q12HR Nitroglycerin SL (Nitroglycerin) 0.4 Mg Subl 0.4 Mg SL DIRECTED PRN ONE TABLET UNDER THE TONGUE NEEDED FOR CHEST PAIN, MAY REPEAT EVERY FIVE MINUTES FOR A TOTAL OF 3 DOSES OR CALL 911 IF NO RELIEF Simvastatin 80 Mg Tab 80 Mg PO DAILY Metoprolol Tartrate 50 Mg Tab 50 Mg PO DAILY Lisinopril 40 Mg Tab 40 Mg PO DAILY Isosorbide Mononitrate ER (Isosorbide Mononitrate) 30 Mg Edu 30 Mg PO DAILY Furosemide 40 Mg Tab 40 Mg PO DAILY Carbidopa-Levodopa 25-100 Mg Tab 1 Tab PO Q8HR Aspirin 81 Mg Chew 81 Mg PO DAILY Narrative Medication List of his home medications reviewed from the nursing note. Review of Systems Except as stated in HPI: all other systems reviewed are Neg Physical Exam Narrative GENERAL: Awake, alert, elderly, no obvious distress SKIN: Focused skin assessment warm/dry. HEAD: Atraumatic. Normocephalic. EYES: Pupils equal and round. No scleral icterus. No injection or drainage. ENT: No nasal bleeding or discharge. Mucous membranes pink and moist. NECK: Trachea midline. No JVD. CARDIOVASCULAR: Regular rate and rhythm. No murmur appreciated. RESPIRATORY: No accessory muscle use. Clear to auscultation. Breath sounds equal bilaterally. GASTROINTESTINAL: Abdomen soft, non-tender, nondistended. Hepatic and splenic margins not palpable. MUSCULOSKELETAL: No obvious deformities. No clubbing. No cyanosis. No edema. NEUROLOGICAL: Awake and alert. No obvious cranial nerve deficits. Motor grossly within normal limits. Normal speech. PSYCHIATRIC: Appropriate mood and affect; insight and judgment normal. Data Data Last Documented VS Orders Orders Basic Metabolic Panel (Bmp) (03/14/17 13:38) Complete Blood Count With Diff (03/14/17 13:38) Magnesium (Mg) (03/14/17 13:38) Prothrombin Time / Inr (Pt) (03/14/17 13:38) Troponin I (03/14/17 13:38) Ecg Monitoring (03/14/17 13:38) Bilateral Bp Monitoring (03/14/17 13:38) Iv Access Insert/Monitor (03/14/17 13:38) Oximetry (03/14/17 13:38) Oxygen Administration (03/14/17 13:38) Sodium Chloride 0.9% Flush (Ns Flush) (03/14/17 13:45) Urinalysis - C+S If Indicated (03/14/17 13:38) Sodium Chlorid 0.9% 500 Ml Inj (Ns 500 M (03/14/17 13:45) Electrocardiogram (03/14/17 13:25) Sodium Chlor 0.9% 250 Ml Inj (Ns 250 Ml (03/14/17 15:00) Labs Laboratory Tests Test 03/14/17 13:45 03/14/17 14:29 White Blood Count 5.5 TH/MM3 Red Blood Count 3.72 MIL/MM3 Hemoglobin 10.9 GM/DL Hematocrit 32.5 % Mean Corpuscular Volume 87.3 FL Mean Corpuscular Hemoglobin 29.2 PG Mean Corpuscular Hemoglobin Concent 33.5 % Red Cell Distribution Width 13.7 % Platelet Count 156 TH/MM3 Mean Platelet Volume 8.6 FL Neutrophils (%) (Auto) 67.9 % Lymphocytes (%) (Auto) 16.9 % Monocytes (%) (Auto) 11.1 % Eosinophils (%) (Auto) 3.5 % Basophils (%) (Auto) 0.6 % Neutrophils # (Auto) 3.7 TH/MM3 Lymphocytes # (Auto) 0.9 TH/MM3 Monocytes # (Auto) 0.6 TH/MM3 Eosinophils # (Auto) 0.2 TH/MM3 Basophils # (Auto) 0.0 TH/MM3 CBC Comment DIFF FINAL Differential Comment Prothrombin Time 11.7 SEC Prothromb Time International Ratio 1.1 RATIO Blood Urea Nitrogen 29 MG/DL Creatinine 1.41 MG/DL Random Glucose 145 MG/DL Calcium Level 8.6 MG/DL Magnesium Level 2.0 MG/DL Sodium Level 138 MEQ/L Potassium Level 3.7 MEQ/L Chloride Level 101 MEQ/L Carbon Dioxide Level 30.7 MEQ/L Anion Gap 6 MEQ/L Estimat Glomerular Filtration Rate 49 ML/MIN Troponin I LESS THAN 0.02 NG/ML Urine Color LIGHT-YELLOW Urine Turbidity CLEAR Urine pH 5.0 Urine Specific [place] 1.009 Urine Protein NEG mg/dL Urine Glucose (UA) NEG mg/dL Urine Ketones NEG mg/dL Urine Occult Blood NEG Urine Nitrite NEG Urine Bilirubin NEG Urine Urobilinogen LESS THAN 2.0 MG/DL Urine Leukocyte Esterase NEG Urine RBC 1 /hpf Urine WBC 1 /hpf Microscopic Urinalysis Comment CULT NOT INDICATED MDM Medical Decision Making Medical Screen Exam Complete: Yes Emergency Medical Condition: Yes Medical Record Reviewed: Yes Interpretation(s) Twelve-lead EKG was reviewed by me. It showed paced, normal axis, nonspecific ST-T wave changes. Heart rate of 60 bpm. Differential Diagnosis Medication related hypo-tension. Neck right abnormality, dehydration Narrative Course 2:02 PM blood test results are back. BUN/creatinine is elevated which tells me that patient might overzealously diuresed. I gave him total of 750 cc of IV fluid bolus. Current blood pressure is 125 systolic. I will discuss the case with his resource specialist teacher Dr. Nobles. However I do intend to send the patient home. 3:22 PM I discussed the case with Dr. De La Cruz who is this patient's resource specialist teacher and as per him the patient always runs a blood pressure in 100s. His last 3 or 4 visits with him blood pressure was around 105. He was not concerned about the blood pressure that was noticed in the emergency room. He did not want to change any medications and wanted the patient to follow up with his primary care. I'm comfortable with that plan. I'll discharge this patient home. Procedures EKG Prior to Arrival: No Diagnosis Primary Impression: Dehydration Referrals: Primary Care Physician 2 days Additional Instructions: Please return to the ER if the condition worsens or any other new concerns. Otherwise follow-up with your primary care. Med/Other Pt SpecificInfo: No Change to Meds Disposition: 01 DISCHARGE HOME Condition: Stable Ugo Arthur MD Mar 14, 2017 13:16
[2017-03-14 13:17] VITALS: BP_SYST 106; BP_SYST 109; BP_SYST 111; BP_DIAS 53; BP_DIAS 54; BP_DIAS 55; RESP 16; RESP 18; RESP 20
[2017-03-14 13:20] VITALS: BP 111/55; PULSE 60; RESP 20; TEMP 98.4; O2SAT 95
[2017-03-14] MEDS ORDERED: BUPR150T5 PO (13:36)
[2017-03-14] MEDS ORDERED: SODIUM CHLORIDE 0.9% FLUSH 10 ML FLUSH IVF PRN (13:45)
[2017-03-14] MEDS ORDERED: SODIUM CHLORID 0.9% 500 ML INJ 500 ML IV ONE (13:45)
[2017-03-14 13:57] LABS: AUTOMATED NEUTROPHIL # 3.7 TH/MM3 (1.8-7.7); BASOPHIL % 0.6 % (0.0-2.0); EOSINOPHIL # 0.2 TH/MM3 (0-0.4); EOSINOPHIL % 3.5 % (0.0-4.0); HEMATOCRIT 32.5 % (39.0-51.0); HEMO FLAGS DIFF FINAL; LYMPH % 16.9 % (9.0-44.0); LYMPHOCYTE # 0.9 TH/MM3 (1.0-4.8); MEAN CELL VOLUME 87.3 FL (80.0-100.0); MEAN CORPUSCULAR HEMOGLOBIN 29.2 PG (27.0-34.0); MEAN CORPUSCULAR HGB CONC 33.5 % (32.0-36.0); MONO % 11.1 % (0.0-8.0); NEUT % 67.9 % (16.0-70.0); PLATELET COUNT 156 TH/MM3 (150-450); RED BLOOD COUNT 3.72 MIL/MM3 (4.50-5.90); RED CELL DISTRIBUTION WIDTH 13.7 % (11.6-17.2); WHITE BLOOD COUNT 5.5 TH/MM3 (4.0-11.0)
[2017-03-14 14:06] LABS: INTERNATIONAL NORMALIZED RATIO 1.1 RATIO; PROTHROMBIN TIME - PATIENT 11.7 SEC (9.8-11.6)
[2017-03-14 14:19] VITALS: RESP 18; O2SAT 95
[2017-03-14 14:21] LABS: ANION GAP 6 MEQ/L (5-15); BICARBONATE 30.7 MEQ/L (21.0-32.0); BLOOD UREA NITROGEN 29 MG/DL (7-18); CHLORIDE 101 MEQ/L (98-107); GLOMERULAR FILTRATION RATE 49 ML/MIN (>89); POTASSIUM 3.7 MEQ/L (3.5-5.1); SODIUM (NA) 138 MEQ/L (136-145)
[2017-03-14] MEDS ORDERED: SODIUM CHLOR 0.9% 250 ML INJ 250 ML IV ONE (15:00)
[2017-03-14 15:28] VITALS: BP 127/59; PULSE 60; RESP 18; O2SAT 97
[2017-03-14 15:46] LABS: BLOOD, URINE NEG (NEG); GLUCOSE,URINE NEG (NEG); KETONE, URINE NEG (NEG); NITRITE,URINE NEG (NEG); URINE COLOR LIGHT-YELLOW (YELLW/STRAW)
[2017-03-14 15:47] LABS: COMMENT (UR) CULT NOT INDICATED; CULTURE IF INDICATED CULT NOT INDICATED
--- NOTE | 2017-03-15 15:25 | EKG ---
Date Performed: 03/14/2017 Time Performed: 13:25:46 PTAGE: 76 years EKG: ELECTRONIC ATRIAL PACEMAKER INTRAVENTRICULAR CONDUCTION DELAY ABNORMAL ECG PREVIOUS TRACING : 01/18/2017 07.44 Compared to the previous tracing paced rhythm now present DOCTOR: Eligio Doe Interpretating Date/Time 03/15/2017 15:25:00
== END 2017-03-14 16:46 | disposition home or self-care (01) ==
LOC: NEPE 13:02
DX: E86.0 Dehydration (principal); I95.9 Hypotension, unspecified; I25.10 Atherosclerotic heart disease of native coronary artery without angina pectoris; E11.9 Type 2 diabetes mellitus without complications; I10 Essential (primary) hypertension; E78.00 Pure hypercholesterolemia, unspecified; Z95.0 Presence of cardiac pacemaker; R07.9 Chest pain, unspecified
CPT/HCPCS: 80048; 81001; 83735; 84484; 85025; 85610; 93005; 96360; 96361; 99284; J7040; J7050